=== PATIENT | female | born 1995 | race Caucasian/White ===

== ENCOUNTER 2020-07-06 13:01 | Emergency (ER) | payer BC, SELFPAY ==
--- NOTE | 2020-07-06 13:16 | ED.SKABFB ---
HPI - Skin/Abscess/Foreign Bdy General Chief complaint: Wound/Laceration Stated complaint: dog bite on wrists Time Seen by Provider: 07/06/20 13:16 Source: patient and RN notes reviewed History of Present Illness HPI narrative: Patient is a 24-year-old female who presents the urgent care with complaints of dog bites to bilateral wrists. Patient states that she was bit last night by her friend's dog who is up-to-date on his vaccinations. Patient states that she is put peroxide on the wounds as well as Neosporin. Denies any fever, chills, nausea, vomiting. States that she is up-to-date on her tetanus shot. No other acute complaints. No acute distress noted. Patient aware of the plan of care. Some parts of this dictation were generated by voice recognition software and may contain typographical and/or grammatical inaccuracies. Related Data Home Medications Medication Instructions Recorded Confirmed levonorgestrel-ethinyl estrad See Rx Instructions .ROUTE .COMPLEX 07/06/20 07/06/20 [Sapna (28)] Allergies Allergy/AdvReac Type Severity Reaction Status Date / Time gluten Allergy Unknown Verified 07/06/20 13:29 Review of Systems Review of Systems: Narrative: CONSTITUTIONAL: Denies fever, chills, or sweats. EYES: Denies visual changes, redness, or discharge. ENT: Denies rhinorrhea, congestion, sore throat, or otalgia. CARDIOVASCULAR: Denies chest pain, palpitations, or edema. RESPIRATORY: Denies cough or dyspnea. GASTROINTESTINAL: Denies abdominal pain, nausea, vomiting, or diarrhea. GENITOURINARY: Denies dysuria or hematuria. SKIN: Reports of puncture wounds from a dog bite to bilateral wrist MUSCULOSKELETAL: Denies back pain, joint pain, or myalgia. NEUROLOGIC: Denies headache, numbness, or weakness. All other systems reviewed are negative, except as documented in HPI. PMFSH Comments At the time of my signature, I reviewed and agree with the nursing past medical, surgical, social, and family history. There is no relevant family history pertinent to the patient complaint. Exam Narrative: Exam Narrative: GENERAL: This is a well-nourished, well-developed patient, in no apparent distress. HEAD: normocephalic, atraumatic. EYES: PERRL. Sclera clear/white. Vision is grossly intact. EARS: External ears normal NOSE: External nose normal with no obvious nasal discharge, nares without redness, no rhinorrhea. THROAT: Mucous membranes moist NECK: Neck supple SKIN: 0.25 cm puncture wound to the ulnar aspect of the right wrist, normal aspect of the left wrist, and midline of right wrist with very mild surrounding erythema NEURO: awake, alert, and oriented to person, place and time. There were no obvious focal neurologic abnormalities. EXTREMITIES: No clubbing, cyanosis, or edema. Course Vital Signs Vital signs: Vital Signs Temperature 99.6 F 07/06/20 13:20 Pulse Rate 82 07/06/20 13:20 Respiratory Rate 18 07/06/20 13:20 Blood Pressure 139/74 07/06/20 13:20 Pulse Oximetry 99 07/06/20 13:20 Temperature 99.6 F 07/06/20 13:20 Pulse Rate 82 07/06/20 13:20 Respiratory Rate 18 07/06/20 13:20 Blood Pressure 139/74 07/06/20 13:20 Pulse Oximetry 99 07/06/20 13:20 Reviewed MDM - Skin/Abscess/Foreign Bdy MDM Narrative Medical decision making narrative: Advised the patient to clean the wounds with plain Dial soap and water. Keep them covered if at risk of being soiled. Use Neosporin to the wounds. Complete oral antibiotic regimen as prescribed. Make sure to eat and drink with the medication. Be aware of signs and symptoms of worsening infection such as increased redness, swelling, fever, chills, nausea, vomiting. Follow-up with your PCP within 2 to 5 days or for worsening symptoms or failure to improve. Differential Diagnosis Differential diagnosis: Likely abscess of skin or subcutaneous tissue, cellulitis, impetigo and contact dermatitis Critical Care Time Critical Care Time Critical Care Time:
[2020-07-06 13:20] VITALS: BP 139/74; PULSE 82; RESP 18; TEMP 37.6; O2SAT 99
== END 2020-07-06 13:35 | disposition home or self-care (01) ==
PROVIDERS: Emergency Provider Nurse Practitioner Family
DX: S61.552A Open bite of left wrist, initial encounter (principal); S61.551A Open bite of right wrist, initial encounter; W54.0XXA Bitten by dog, initial encounter; K90.0 Celiac disease
CPT/HCPCS: 99213; G0463